=== PATIENT | male | born 1995 ===

== ENCOUNTER 2017-11-02 17:50 | Emergency (ER) | payer SELFPAY ==
[~2017-11-02] VITALS: Ht 193 cm; Wt 70.3 kg
[2017-11-02 18:02] VITALS: Ht 193 cm; Wt 70.3 kg
[2017-11-02 20:59] VITALS: BP 134/74
== END 2017-11-02 20:59 | disposition home or self-care (01) ==
LOC: ED 17:50
DX: R07.9 Chest pain, unspecified (principal)